=== PATIENT | female | born 1995 | race African-American/Black ===

== ENCOUNTER 2017-12-22 00:51 | Emergency (ER) | payer MEDICAID ==
[~2017-12-22] VITALS: Ht 157.5 cm; Wt 55.0 kg
[2017-12-22 02:05] VITALS: BP 119/63
[2017-12-22] MEDS ORDERED: KETOROLAC 30MG/ML VIAL IV STA (02:50)
[2017-12-22] MEDS ORDERED: SODIUM CHLORIDE 0.9% 1,000 ML IV ONE (02:50)
== END 2017-12-22 05:25 | disposition left against medical advice (07) ==
LOC: ER 00:51
DX: K08.89 Other specified disorders of teeth and supporting structures (principal); R50.9 Fever, unspecified
CPT/HCPCS: 99283; J7030

== ENCOUNTER 2018-04-01 22:10 | Emergency (ER) | payer MEDICAID ==
[~2018-04-01] VITALS: Ht 157.5 cm; Wt 55.4 kg
[2018-04-01 22:58] VITALS: BP 116/72
== END 2018-04-02 02:19 | disposition left against medical advice (07) ==
LOC: ER 22:10
DX: O20.9 Hemorrhage in early pregnancy, unspecified (principal); Z3A.01 Less than 8 weeks gestation of pregnancy; Z53.21 Procedure and treatment not carried out due to patient leaving prior to being seen by health care provider

== ENCOUNTER 2018-04-22 15:35 | Emergency (ER) | payer MEDICAID ==
[~2018-04-22] VITALS: Ht 157.5 cm; Wt 55.0 kg
[2018-04-22 15:46] VITALS: BP 108/75
[2018-04-22 16:35] LABS: CLARITY URINE CLOUDY (CLEAR); COLOR URINE YELLOW (YELLOW); KETONES URINE 3+ (NEGATIVE); LEUKOCYTE ESTERASE URINE NEGATIVE (NEGATIVE); NITRITE URINE NEGATIVE (NEGATIVE); OCCULT BLOOD URINE NEGATIVE (NEGATIVE); PROTEIN URINE NEGATIVE (NEGATIVE)
== END 2018-04-22 17:10 | disposition left against medical advice (07) ==
LOC: ER 17:00
DX: O26.891 Other specified pregnancy related conditions, first trimester (principal); O20.9 Hemorrhage in early pregnancy, unspecified; R10.9 Unspecified abdominal pain; Z3A.09 9 weeks gestation of pregnancy
CPT/HCPCS: 81003; 81025; 99283

== ENCOUNTER 2018-10-06 10:06 | Observation (INO) | payer MEDICAID ==
[~2018-10-06] VITALS: Ht 157.5 cm; Wt 62.6 kg
[2018-10-06 11:02] LABS: CLARITY URINE CLEAR (CLEAR); COLOR URINE YELLOW (YELLOW); KETONES URINE NEGATIVE (NEGATIVE); LEUKOCYTE ESTERASE URINE TRACE (NEGATIVE); NITRITE URINE NEGATIVE (NEGATIVE); OCCULT BLOOD URINE NEGATIVE (NEGATIVE); PH URINE 7.5 (4.5-8.0); PROTEIN URINE NEGATIVE (NEGATIVE); SPECIFIC GRAVITY URINE 1.005 (1.005-1.030); UROBILINOGEN URINE 0.2 E.U./dL (0.2-1.0)
[2018-10-06] MEDS ORDERED: ACETAMINOPHEN 500MG TABLET PO NR (11:30)
[2018-10-06] MEDS ORDERED: DEXT 5%/LACTATED RINGERS 1,000 ML IV ONE (11:45)
[2018-10-06] MEDS ORDERED: BETAMETHASONE ACET/BETAMET 30 MG/5 ML VIAL IM NR (12:30)
[2018-10-07] MEDS ORDERED: BETAMETHASONE ACET/BETAMET 30 MG/5 ML VIAL IM NR (12:30)
== END 2018-10-06 15:35 | disposition home or self-care (01) ==
LOC: L&D 10:06
PROVIDERS: ADMIT Obstetrics & Gynecology; ATTEND Obstetrics & Gynecology
DX: O62.9 Abnormality of forces of labor, unspecified (principal); Z3A.33 33 weeks gestation of pregnancy
CPT/HCPCS: 81003; 82731; 96372; 99281; G0378; J0702; 96360; 96361; A4315

== ENCOUNTER 2018-10-14 22:01 | Observation (INO) | payer MEDICAID ==
[~2018-10-14] VITALS: Ht 157.5 cm; Wt 64.0 kg
[2018-10-14] MEDS ORDERED: PNV1TABL50 MT (23:03)
== END 2018-10-14 23:10 | disposition home or self-care (01) ==
LOC: INTOOBSV 22:01 → L&D 22:01
PROVIDERS: ADMIT Specialist; ATTEND Specialist
DX: O62.9 Abnormality of forces of labor, unspecified (principal); Z3A.34 34 weeks gestation of pregnancy
CPT/HCPCS: 99281; G0378

== ENCOUNTER 2018-11-04 19:36 | Observation (INO) | payer MEDICAID ==
[~2018-11-04] VITALS: Ht 157.5 cm; Wt 64.9 kg
[~2018-11-04 19:36] MED LIST: PNV1TABL50 MT
[2018-11-04 21:13] LABS: BASOPHILS % 0.2 % (0.0-2.0); EOSINOPHILS % 0.3 % (0.0-5.0); HEMATOCRIT. 36.9 % (36.0-48.0); HEMOGLOBIN. 12.6 g/dL (12.0-16.0); LYMPHOCYTES % 19.5 % (20.0-50.0); MEAN CORPUSCULAR HEMOGLOBIN 28.1 pg (28.0-32.0); MEAN CORPUSCULAR VOLUME 82.5 fL (81.0-99.0); MEAN PLATELET VOLUME 9.8 fl (7.4-10.4); PLATELET 145 x1000/uL (130-400); RED BLOOD CELL COUNT 4.47 mill/uL (4.2-5.4); RED CELL DISTRIBUTION WIDTH 13.4 % (11.6-14.6)
[2018-11-04] MEDS ORDERED: ACETAMINOPHEN 500MG TABLET PO NR (23:00)
[2018-11-04] MEDS ORDERED: ACETAMINOPHEN WITH CODEINE 300/30MG TABLET PO ONE (23:15)
== END 2018-11-04 23:30 | disposition home or self-care (01) ==
LOC: 8 EST LDRP 19:36
PROVIDERS: ADMIT Obstetrics & Gynecology; ATTEND Obstetrics & Gynecology
DX: O26.893 Other specified pregnancy related conditions, third trimester (principal); R42 Dizziness and giddiness; R10.9 Unspecified abdominal pain; Z3A.37 37 weeks gestation of pregnancy
CPT/HCPCS: 36415; 85025; 99281; G0378

== ENCOUNTER 2020-04-28 09:21 | Inpatient (IN) | payer MEDICAID ==
[~2020-04-28] VITALS: Ht 157.5 cm; Wt 65.4 kg
[2020-04-28] MEDS ORDERED: SODIUM CHLORIDE 0.9% 1,000 ML IV ONE (10:06)
[2020-04-28] MEDS ORDERED: KETOROLAC 30MG/ML VIAL IV ONE (10:15)
[2020-04-28 10:24] LABS: CLARITY URINE CLOUDY (CLEAR); COLOR URINE DARK YELLOW (YELLOW); KETONES URINE 3+ (NEGATIVE); LEUKOCYTE ESTERASE URINE 2+ (NEGATIVE); NITRITE URINE NEGATIVE (NEGATIVE); OCCULT BLOOD URINE 3+ (NEGATIVE); PROTEIN URINE 2+ (NEGATIVE); SPECIFIC GRAVITY URINE 1.032 (1.005-1.030)
[2020-04-28 10:29] LABS: HEMOGLOBIN. 12.9 g/dL (12.0-16.0); MEAN CORPUSCULAR HEMOGLOBIN 27.8 pg (28.0-32.0); MEAN CORPUSCULAR VOLUME 81.7 fL (81.0-99.0); MEAN PLATELET VOLUME 9.9 fl (7.4-10.4); PLATELET 200 x1000/uL (130-400); RED BLOOD CELL COUNT 4.65 mill/uL (4.2-5.4); RED CELL DISTRIBUTION WIDTH 13.8 % (11.6-14.6)
[2020-04-28 10:35] LABS: CHLORIDE 104 mEq/L (98-107)
[2020-04-28 10:37] LABS: INR 1.1; PROTHROMBIN TIME 11.6 sec (9.6-11.0)
[2020-04-28 10:45] LABS: B-HCG QUANTITATIVE < 1 mIU/mL (<3)
[2020-04-28] MEDS ORDERED: CEFTRIAXONE 1 G PREMIX 50 ML IV NR (11:30)
[2020-04-28 11:48] LABS: PLATELET ESTIMATE NORMAL
[2020-04-28] MEDS ORDERED: IOHEXOL-300 100 ML BOTTLE ONE (14:26)
[2020-04-28] MEDS ORDERED: CEFTRIAXONE SODIUM 250 MG/VIAL IM ONE (14:30)
[2020-04-28] MEDS ORDERED: AZITHROMYCIN 500 MG TABLET PO ONE (14:30)
[2020-04-28 17:00] VITALS: BP 117/67
[2020-04-28] MEDS ORDERED: ACETAMINOPHEN 325MG TABLET PO PRN (17:15)
[2020-04-28] MEDS ORDERED: HYDROCODONE/ACETAMINOPHEN 5/325MG TABLET PO PRN (17:15)
[2020-04-28] MEDS ORDERED: ONDANSETRON HCL 4MG/2ML INJ IV PRN (17:15)
[2020-04-28 17:20] VITALS: BP 117/67
[2020-04-28 17:30] VITALS: BP 127/74
[2020-04-28 17:52] VITALS: BP 127/78
[2020-04-28] MEDS: DEXT 5%/0.45% NACL 1000ML 1,000 ML IV SCH (18:42)
[2020-04-28 20:00] VITALS: BP 134/83
[2020-04-28] MEDS: METRONIDAZOLE 500 MG PREMIX 100 ML IV SCH (22:58)
[2020-04-29] VITALS (7 sets, daily range): BP systolic 105–148; BP diastolic 44–70
[2020-04-29 05:13] LABS: BASOPHILS % 0.3 % (0.0-2.0); EOSINOPHILS % 0.5 % (0.0-5.0); HEMATOCRIT. 35.5 % (36.0-48.0); HEMOGLOBIN. 12.1 g/dL (12.0-16.0); LYMPHOCYTES % 22.8 % (20.0-50.0); MEAN CORPUSCULAR VOLUME 82.1 fL (81.0-99.0); MONOCYTES % 6.4 % (2.0-8.0); PLATELET 188 x1000/uL (130-400); RED BLOOD CELL COUNT 4.32 mill/uL (4.2-5.4); RED CELL DISTRIBUTION WIDTH 13.5 % (11.6-14.6)
[2020-04-29 05:39] LABS: CHLORIDE 106 mEq/L (98-107)
[2020-04-29] MEDS: METRONIDAZOLE 500 MG PREMIX 100 ML IV SCH ×2 (06:27→14:00)
[2020-04-29] MEDS ORDERED: CEFTRIAXONE 1 G PREMIX 50 ML IV SCH (08:00)
[2020-04-29] MEDS ORDERED: AZITHROMYCIN 500 MG in DEXT 5% WATER 250 ML IV SCH (09:00)
[2020-04-29] MEDS: DEXT 5%/0.45% NACL 1000ML 1,000 ML IV SCH (10:00)
[2020-04-29] MEDS ORDERED: METRONIDAZOLE 500 MG PREMIX 100 ML IV SCH (22:00)
[2020-04-30] VITALS: BP 113/58
[2020-04-30] MEDS: DEXT 5%/0.45% NACL 1000ML 1,000 ML IV SCH (01:43)
[2020-04-30 04:00] VITALS: BP 109/47
[2020-04-30] MEDS ORDERED: METRONIDAZOLE 500MG TABLET PO SCH (06:00)
[2020-04-30 08:00] VITALS: BP 115/66
[2020-04-30] MEDS ORDERED: AZITHROMYCIN 250 MG TABLET PO SCH (09:00)
[2020-04-30] MEDS ORDERED: CEFTRIAXONE 1 G PREMIX 50 ML IV SCH (09:00)
[2020-04-30 11:15] VITALS: BP 110/70
[2020-04-30 12:00] VITALS: BP 127/75
[2020-05-01 05:08] LABS: NEISSERIA GONORRHOEAE NAA Positive (Negative)
== END 2020-04-30 11:43 | disposition home or self-care (01) | DRG 724 ==
LOC: ER 09:21 → ENRESERV 16:30 → 6EST 17:41
PROVIDERS: ADMIT Obstetrics & Gynecology; ATTEND Obstetrics & Gynecology
DX: A59.9 Trichomoniasis, unspecified (principal); F17.200 Nicotine dependence, unspecified, uncomplicated; N73.9 Female pelvic inflammatory disease, unspecified; N70.11 Chronic salpingitis
CPT/HCPCS: 36415; 74177; 76830; 76856; 80053; 81003; 84702; 85025; 86850; 86900; 87210; 87491; 87591; 96365; 99285; J0456; J0696; J1885; J3490; J7030; J7060; Q9967